=== PATIENT | male | born 2000 | race Two or more races ===

== ENCOUNTER 2023-12-29 12:42 | Emergency (ER) | payer MEDICAID, OTHER ==
[~2023-12-29] VITALS: Ht 182.9 cm; Wt 104.1 kg
[2023-12-29 13:45] VITALS: TEMP 98.1
[2023-12-29 13:53] VITALS: PULSE 58; RESP 18; O2SAT 98
[2023-12-29] MEDS: ETOMIDATE (2MG/ML) 20ML VIAL IV ONE ×2 (14:25→14:29)
[2023-12-29 14:50] VITALS: BP 131/71; PULSE 60; RESP 12; O2SAT 100
[2023-12-29] MEDS ORDERED: IBU600T PO (15:25)
== END 2023-12-29 15:38 | disposition home or self-care (01) ==
LOC: ER 12:42
DX: M24.411 Recurrent dislocation, right shoulder (principal); Z98.890 Other specified postprocedural states
CPT/HCPCS: 23650; 73030